=== PATIENT | female | born 1980 | race Two or more races ===

== ENCOUNTER 2020-08-13 23:38 | Observation (INO) | payer MEDICAID ==
[~2020-08-13] VITALS: Ht 160 cm; Wt 84.4 kg
[2020-08-14] MEDS ORDERED: METF500S7 PO (01:24)
[2020-08-14] MEDS ORDERED: SERT-112 PO (01:24)
[2020-08-14] MEDS ORDERED: PREN-176 PO (01:24)
[2020-08-14] MEDS ORDERED: LAMO100T65 PO (01:24)
[2020-08-14] MEDS ORDERED: FERR325T6 PO (01:24)
== END 2020-08-14 01:45 | disposition home or self-care (01) ==
LOC: 8 EST LDRP 23:38
PROVIDERS: ADMIT Obstetrics & Gynecology; ATTEND Obstetrics & Gynecology
DX: O24.419 Gestational diabetes mellitus in pregnancy, unspecified control (principal); O09.523 Supervision of elderly multigravida, third trimester; O36.8130 Decreased fetal movements, third trimester, not applicable or unspecified; Z3A.35 35 weeks gestation of pregnancy
CPT/HCPCS: 59025; 82962; G0378; 99281

== ENCOUNTER 2020-08-30 14:12 | Observation (INO) | payer MEDICAID ==
[~2020-08-30] VITALS: Ht 160 cm; Wt 104.3 kg
[~2020-08-30 14:12] MED LIST: FERR325T6 PO; LAMO100T65 PO; METF500S7 PO; PREN-176 PO; SERT-112 PO
[2020-08-30] MEDS ORDERED: LACTATED RINGERS 1,000 ML IV SCH (16:15)
[2020-08-30 16:38] LABS: CLARITY URINE CLEAR (CLEAR); COLOR URINE YELLOW (YELLOW); KETONES URINE TRACE (NEGATIVE); LEUKOCYTE ESTERASE URINE NEGATIVE (NEGATIVE); NITRITE URINE NEGATIVE (NEGATIVE); OCCULT BLOOD URINE NEGATIVE (NEGATIVE); PH URINE 5.5 (4.5-8.0); PROTEIN URINE NEGATIVE (NEGATIVE); UROBILINOGEN URINE 0.2 E.U./dL (0.2-1.0)
== END 2020-08-30 20:24 | disposition home health service (06) ==
LOC: 8 EST LDRP 14:12
PROVIDERS: ADMIT Obstetrics & Gynecology; ATTEND Obstetrics & Gynecology
DX: O46.93 Antepartum hemorrhage, unspecified, third trimester (principal); O26.893 Other specified pregnancy related conditions, third trimester; R10.30 Lower abdominal pain, unspecified; O99.891 Other specified diseases and conditions complicating pregnancy; M54.5 Low back pain; Z3A.36 36 weeks gestation of pregnancy
CPT/HCPCS: 59025; 76805; 76818; 81003; 82962; 96360; 96361; G0378; 99281; J7120

== ENCOUNTER 2020-09-02 09:11 | Observation (INO) | payer MEDICAID ==
[~2020-09-02] VITALS: Ht 162.6 cm; Wt 82.6 kg
== END 2020-09-02 10:25 | disposition home or self-care (01) ==
LOC: 8 EST LDRP 09:11
PROVIDERS: ADMIT Obstetrics & Gynecology; ATTEND Obstetrics & Gynecology
DX: O09.523 Supervision of elderly multigravida, third trimester (principal); Z3A.36 36 weeks gestation of pregnancy
CPT/HCPCS: 59025; 76815; 76818; G0378

== ENCOUNTER 2020-09-04 20:05 | Observation (INO) | payer MEDICAID ==
[~2020-09-04] VITALS: Ht 160 cm; Wt 84.4 kg
[2020-09-04] MEDS ORDERED: LACTATED RINGERS 1,000 ML IV SCH (21:15)
== END 2020-09-05 00:01 | disposition home or self-care (01) ==
LOC: 8 EST LDRP 20:05
PROVIDERS: ADMIT Obstetrics & Gynecology; ATTEND Obstetrics & Gynecology
DX: O36.8130 Decreased fetal movements, third trimester, not applicable or unspecified (principal); O26.893 Other specified pregnancy related conditions, third trimester; R10.30 Lower abdominal pain, unspecified; Z3A.36 36 weeks gestation of pregnancy
CPT/HCPCS: 59025; 76815; 76818; 82962; 96360; 96361; G0378; 99281